=== PATIENT | female | born 1945 | race Caucasian/White ===

== ENCOUNTER → 2021-04-28 | Day surgery (SDC) | payer MEDICARE ==
[~2021-04-28] VITALS: Ht 162.6 cm; Wt 66.2 kg
[~2021-04-28] MED LIST: B-12 IJ; D 3 PO; IRBESARTAN150 MG PO; LIPITOR20 M1 PO; NEXIUM40 MG PO; VITAMIN D3 COM1 EACH PO
[2021-04-28 08:19] LABS: HCT 44.3 % (37.0-47.0); HGB 14.4 g/dl (12.5-16.0); MCH 28.9 pg (25.0-31.0); MCHC 32.5 g/dL (32.0-36.0); MPV 9.7 fL (6.0-9.5); RBC 4.98 M/uL (4.20-5.40); RDW 12.7 % (11.5-14.0); WBC 4.6 K/uL (4.0-10.5)
[2021-04-28 08:37] LABS: ALBUMIN 4.3 g/dL (3.4-5.0); BILIRUBIN - TOTAL 0.7 mg/dL (0.2-1.0); CREATININE 0.82 mg/dL (0.51-0.95); GLOBULIN (CALCULATION) 3.9 g/dL; POTASSIUM 3.9 mmol/L (3.5-5.1); TOTAL PROTEIN 8.2 g/dL (6.4-8.2)
== END | disposition home or self-care (01) ==
LOC: FAS 07:48
PROVIDERS: Surgery
DX: K63.5 Polyp of colon (principal); K92.1 Melena; M19.90 Unspecified osteoarthritis, unspecified site; Z79.899 Other long term (current) drug therapy
CPT/HCPCS: 36415; 80053; 88305; J1610; J2250; J2704; J7120

== ENCOUNTER → 2021-07-01 | Day surgery (SDC) | payer MEDICARE ==
[~2021-07-01] VITALS: Ht 162.6 cm; Wt 66.2 kg
[2021-07-01 07:59] LABS: HCT 43.9 % (37.0-47.0); HGB 13.9 g/dl (12.5-16.0); MCH 28.5 pg (25.0-31.0); MCHC 31.7 g/dL (32.0-36.0); MCV 90.1 fL (78.0-100.0); MPV 9.7 fL (6.0-9.5); RBC 4.87 M/uL (4.20-5.40)
[2021-07-01 08:31] LABS: CREATININE 0.83 mg/dL (0.51-0.95); POTASSIUM 3.9 mmol/L (3.5-5.1)
== END | disposition home or self-care (01) ==
LOC: FAS 06:57
PROVIDERS: Surgery
DX: Z12.11 Encounter for screening for malignant neoplasm of colon (principal); Z79.899 Other long term (current) drug therapy; Z86.010 Personal history of colon polyps
CPT/HCPCS: 36415; 80048; J2704; J7120

== ENCOUNTER → 2022-01-12 | Day surgery (SDC) | payer MEDICARE ==
[~2022-01-12] VITALS: Ht 162.6 cm; Wt 66.2 kg
[2022-01-12 08:59] LABS: HCT 43.8 % (37.0-47.0); MCH 28.5 pg (25.0-31.0); MCV 89.2 fL (78.0-100.0); MPV 9.5 fL (6.0-9.5); RBC 4.91 M/uL (4.20-5.40); WBC 4.7 K/uL (4.0-10.5)
[2022-01-12 09:36] LABS: ALBUMIN 4.3 g/dL (3.4-5.0); BILIRUBIN - TOTAL 0.7 mg/dL (0.2-1.0); BUN/CREAT RATIO (CALC) 12.2 RATIO; CREATININE 0.9 mg/dL (0.51-0.95); GLOBULIN (CALCULATION) 3.7 g/dL; POTASSIUM 4.4 mmol/L (3.5-5.1)
== END | disposition home or self-care (01) ==
LOC: FAS 07:54
PROVIDERS: Surgery
DX: Z09 Encounter for follow-up examination after completed treatment for conditions other than malignant neoplasm (principal); I10 Essential (primary) hypertension; Z86.010 Personal history of colon polyps; Z86.018 Personal history of other benign neoplasm
CPT/HCPCS: 36415; 80053; J2250; J2704; J7120